=== PATIENT | female | born 1970 | race Caucasian/White ===

== ENCOUNTER 2017-11-11 16:52 | Inpatient (IN) | payer OTHER ==
[~2017-11-11] VITALS: Ht 157.5 cm; Wt 64.5 kg
[~2017-11-11 16:52] MED LIST: ACETAMINOPHEN/O1 TA3 PO; AMITRIPTYLINE H25 MG PO; AMPICILLIN500 MG PO; COL100 PO; FLE10 PO; FLO4 PO; LAC PO; LEVAQUIN750 MG PO; MAGNESIUM OXID400 MG PO; MOTRIN800 MG PO; MSC15 PO; NIC21 TD; NOR10T PO; PLA75 PO; PYRIDIUM200 MG PO; XAN1 PO; [UNRECOGNIZED DRUG - REMARK] PO
[2017-11-11 16:55] VITALS: Ht 157.5 cm; Wt 64.5 kg
[2017-11-11 17:58] LABS: PLATELET COUNT 220 x10^3mcL (130-400); RED CELL DISTRIBUTION WIDTH 13.5 % (11.5-14.5)
[2017-11-11 17:58] LABS: microscopic required? YES; urine erythrocyte TRACE (NEGATIVE)
[2017-11-11 18:08] LABS: CALCIUM 9.3 mg/dL (8.5-10.1); CHLORIDE SERUM 105 mmol/L (98-107); CREATININE SERUM 0.9 mg/dL (0.6-1.0); GFR1 > 60 mL/min; GLUCOSE SERUM 73 mg/dL (74-106); POTASSIUM SERUM 3.9 mmol/L (3.5-5.1); SODIUM SERUM 139 mmol/L (136-145)
[2017-11-11 18:12] LABS: ALBUMIN 3.9 g/dL (3.4-5.0); ALKALINE PHOSPHATASE 80 U/L (46-116); ALT/SGPT 19 U/L (14-59); AST/SGOT 22 U/L (15-37); BILIRUBIN TOTAL 0.37 mg/dL (0.20-1.00); CHOLESTEROL 138 mg/dL (<200); LIPASE 164 IU/L (73-393); TOTAL PROTEIN, SERUM 7.1 g/dL (6.4-8.2); TRIGLYCERIDES 48 mg/dL (<150)
[2017-11-11 18:14] LABS: CHOLESTEROL/HDL RATIO 2.2; HDL CHOLESTEROL 62 mg/dL (40-60)
[2017-11-11 18:25] LABS: T3 TOTAL 1.28 ng/mL
[2017-11-11 18:32] LABS: FREE T4 0.9 ng/dL (0.76-1.46); FREE THYROXINE INDEX 2.7 ug/dL (1.4-4.5); T4(THYROXINE) 8.3 ug/dL (4.7-13.3)
[2017-11-11 20:06] LABS: PHOSPHOROUS 4.7 mg/dL (2.5-4.9)
[2017-11-11 20:09] VITALS: BP 116/89
[2017-11-11 21:52] LABS: AMPHETAMINE QUAL UR POSITIVE (NEG <=1000)
== END 2017-11-12 04:03 | disposition left against medical advice (07) | DRG 465 ==
LOC: ED 16:52 → DU 19:21
PROVIDERS: Family Medicine; Specialist
DX: N20.0 Calculus of kidney (principal); N12 Tubulo-interstitial nephritis, not specified as acute or chronic; I10 Essential (primary) hypertension; Z53.21 Procedure and treatment not carried out due to patient leaving prior to being seen by health care provider; D72.819 Decreased white blood cell count, unspecified; F17.210 Nicotine dependence, cigarettes, uncomplicated; F32.9 Major depressive disorder, single episode, unspecified; Z88.5 Allergy status to narcotic agent; Z88.8 Allergy status to other drugs, medicaments and biological substances; Z82.49 Family history of ischemic heart disease and other diseases of the circulatory system
CPT/HCPCS: 83880; 84439; J0696; J1200; J2405; J3010; J7030; Q0092

== ENCOUNTER 2018-05-30 15:25 | Inpatient (IN) | payer MEDICAID ==
[~2018-05-30] VITALS: Ht 157.5 cm; Wt 58.5 kg
[2018-05-30 15:42] VITALS: Ht 157.5 cm; Wt 58.5 kg
[2018-05-30 17:09] LABS: PLATELET COUNT 177 x10^3mcL (130-400); RED CELL DISTRIBUTION WIDTH 12.9 % (11.5-14.5)
[2018-05-30 17:23] LABS: CARBON DIOXIDE 28.9 mmol/L (21-32); CHLORIDE SERUM 103 mmol/L (98-107); GFR1 > 60 mL/min; GLUCOSE SERUM 97 mg/dL (74-106); POTASSIUM SERUM 3.6 mmol/L (3.5-5.1); SODIUM SERUM 140 mmol/L (136-145)
[2018-05-30 17:36] LABS: ALBUMIN 3.5 g/dL (3.4-5.0); ALKALINE PHOSPHATASE 87 U/L (46-116); ALT/SGPT 17 U/L (14-59); AST/SGOT 15 U/L (15-37); TOTAL PROTEIN, SERUM 6.6 g/dL (6.4-8.2)
[2018-05-30 17:52] LABS: BILIRUBIN TOTAL < 0.1 mg/dL (0.20-1.00)
[2018-05-30 19:11] LABS: BAND NEUTROPHIL 8 % (0-10); SEGMENTED NEUTROPHILS 66 % (37-75)
[2018-05-30 19:12] LABS: ATYPICAL LYMPH 0 %; BASOPHIL 0 % (0-2); MONOCYTE 8 % (0-7); rbc morphology (normal/abnorm) ABNORMAL (NORMAL)
[2018-05-30 19:13] LABS: PLATELET MORPHOLOGY PLATELETS DECREASED
[2018-05-30 19:18] LABS: microscopic required? YES; urine erythrocyte 2+ (NEGATIVE)
[2018-05-30 19:37] LABS: AMPHETAMINE QUAL UR POSITIVE (See below)
[2018-05-30 19:39] LABS: CHOLESTEROL/HDL RATIO 2.4
[2018-05-30 19:45] LABS: FREE THYROXINE INDEX 2.5 ug/dL (1.4-4.5); T3 TOTAL 1.42 ng/mL; T4(THYROXINE) 7.4 ug/dL (4.7-13.3)
[2018-05-30 23:16] VITALS: BP 112/78
[2018-05-31 05:29] VITALS: BP 125/88
[2018-05-31 09:02] VITALS: BP 135/91
[2018-05-31 12:25] VITALS: BP 135/91
[2018-05-31] MEDS ORDERED: DIL2 PO (13:26)
[2018-05-31] MEDS ORDERED: FLO4 PO (13:26)
== END 2018-05-31 13:58 | disposition short-term general hospital (02) | DRG 465 ==
LOC: ED 15:25 → MU 19:11
PROVIDERS: Emergency Medicine; Family Medicine
DX: N13.2 Hydronephrosis with renal and ureteral calculous obstruction (principal); N17.0 Acute kidney failure with tubular necrosis; N39.0 Urinary tract infection, site not specified; F15.10 Other stimulant abuse, uncomplicated; F12.10 Cannabis abuse, uncomplicated; F11.10 Opioid abuse, uncomplicated; F31.9 Bipolar disorder, unspecified; R31.9 Hematuria, unspecified; Z87.442 Personal history of urinary calculi; F17.210 Nicotine dependence, cigarettes, uncomplicated
CPT/HCPCS: 83880; 84439; J0696; J1885; J2060; J2405; J3010; J7030; Q0092

== ENCOUNTER 2019-02-23 23:07 | Emergency (ER) | payer MEDICAID ==
[~2019-02-23] VITALS: Ht 154.9 cm; Wt 61.2 kg
[~2019-02-23 23:07] MED LIST changes: +DIL2 PO
[2019-02-23 23:16] VITALS: BP 159/98; Ht 154.9 cm; Wt 61.2 kg
== END 2019-02-24 00:27 | disposition home or self-care (01) ==
LOC: ED 23:07
DX: S51.831A Puncture wound without foreign body of right forearm, initial encounter (principal); Z88.6 Allergy status to analgesic agent; Z88.8 Allergy status to other drugs, medicaments and biological substances; W54.0XXA Bitten by dog, initial encounter; Y93.89 Activity, other specified; Y92.89 Other specified places as the place of occurrence of the external cause; Y99.8 Other external cause status

== ENCOUNTER 2019-08-06 01:12 | Emergency (ER) | payer MEDICAID ==
[~2019-08-06] VITALS: Ht 157.5 cm; Wt 65.5 kg
[2019-08-06 01:23] VITALS: BP 150/101; Ht 157.5 cm; Wt 65.5 kg
== END 2019-08-06 03:01 | disposition home or self-care (01) ==
LOC: ED 01:12
DX: S40.011A Contusion of right shoulder, initial encounter (principal); S80.01XA Contusion of right knee, initial encounter; M79.601 Pain in right arm; M79.674 Pain in right toe(s); Z88.6 Allergy status to analgesic agent; Z88.8 Allergy status to other drugs, medicaments and biological substances; W05.2XXA Fall from non-moving motorized mobility scooter, initial encounter; Y93.I9 Activity, other involving external motion; Y92.488 Other paved roadways as the place of occurrence of the external cause; Y99.8 Other external cause status